=== PATIENT | male | born 1960 | race Native Hawaiian/Other Pacific Islander ===

== ENCOUNTER 2018-12-13 08:41 | Outpatient (CLI) | payer OTHER | END 2018-12-13 08:51 | disposition short-term general hospital (02) | LOC: AMB 08:41 | DX: M54.2 Cervicalgia (principal); M25.512 Pain in left shoulder; M25.511 Pain in right shoulder; V59.9XXA Occupant (driver) (passenger) of pick-up truck or van injured in unspecified traffic accident, initial encounter; Y92.413 State road as the place of occurrence of the external cause | CPT/HCPCS: A0425; A0427 ==

== ENCOUNTER 2018-12-13 08:54 | Emergency (ER) | payer OTHER ==
[~2018-12-13] VITALS: Ht 185.4 cm; Wt 108.9 kg
[2018-12-13 08:54] VITALS: TEMP 97.7
[2018-12-13 11:53] VITALS: BP 130/89
== END 2018-12-13 11:53 | disposition home or self-care (01) ==
LOC: ED 08:54
DX: S16.1XXA Strain of muscle, fascia and tendon at neck level, initial encounter (principal); S20.211A Contusion of right front wall of thorax, initial encounter; V54.5XXA Driver of pick-up truck or van injured in collision with heavy transport vehicle or bus in traffic accident, initial encounter
CPT/HCPCS: 81000; 96374; 99284; J1885